=== PATIENT | female | born 1990 | race Caucasian/White ===

== ENCOUNTER → 2016-06-29 | Outpatient (CLI) | payer OTHER ==
[2016-06-29 15:48] LABS: ALT/SGPT 14 U/L (12-78); BLOOD UREA NITROGEN 10 mg/dl (7-18); BUN/CREATININE RATIO 12.7 (10-20); CALCIUM 8.9 mg/dl (8.5-10.1); CARBON DIOXIDE 29 mmol/L (21-32); CHLORIDE 103 mmol/L (98-107); CHOLESTEROL 156 mg/dl (0-200); CREATININE 0.79 mg/dl (0.60-1.20); GLUCOSE 266 mg/dl (70-99); POTASSIUM 4.2 mmol/L (3.5-5.1); SODIUM 139 mmol/L (136-145); TRIGLYCERIDES 66 mg/dl (0-150); VERY LOW DENSITY LIPOPROT CALC 13 mg/dl
[2016-06-29 15:53] LABS: ESTIMATED AVERAGE GLUCOSE 197 mg/dl; HA1C FLAG Normal (Normal)
[2016-06-29 15:58] LABS: ALKALINE PHOSPHATASE 64 U/L (45-117); AST/SGOT 13 U/L (15-37); HDL CHOLESTEROL 79 mg/dl; LDL CHOLESTEROL CALCULATED 64 mg/dl; THYROID STIMULATING HORMONE 0.948 uIu/ml (0.300-4.500)
== END | disposition home or self-care (01) ==
LOC: C.LAB1850 14:30
PROVIDERS: ATTEND Nurse Practitioner Family
DX: E10.9 Type 1 diabetes mellitus without complications (principal)

== ENCOUNTER → 2016-09-29 | Outpatient (CLI) | payer OTHER, BC ==
[2016-09-29 17:52] LABS: ESTIMATED AVERAGE GLUCOSE 183 mg/dl; HA1C FLAG Normal (Normal)
== END | disposition home or self-care (01) ==
LOC: C.LAB1850 16:43
PROVIDERS: ATTEND Nurse Practitioner Family
DX: E10.65 Type 1 diabetes mellitus with hyperglycemia (principal)

== ENCOUNTER → 2017-03-06 | Outpatient (CLI) | payer BC ==
[2017-03-07 05:37] LABS: ESTIMATED AVERAGE GLUCOSE 157 mg/dl; HA1C FLAG Normal (Normal)
== END | disposition home or self-care (01) ==
LOC: C.LAB1850 16:14
PROVIDERS: ATTEND Nurse Practitioner Family
DX: E10.9 Type 1 diabetes mellitus without complications (principal)

== ENCOUNTER → 2017-11-08 | Outpatient (CLI) | payer BC ==
[2017-11-08 18:15] LABS: ALBUMIN 4.1 gm/dl (3.4-5.0); ALKALINE PHOSPHATASE 67 U/L (45-117); ALT/SGPT 16 U/L (12-78); AST/SGOT 13 U/L (15-37); BLOOD UREA NITROGEN 13 mg/dl (7-18); CALCIUM 8.9 mg/dl (8.5-10.1); CARBON DIOXIDE 30 mmol/L (21-32); CHOLESTEROL 153 mg/dl (0-200); CREATININE 0.79 mg/dl (0.60-1.20); GLUCOSE 54 mg/dl (70-99); LDL CHOLESTEROL CALCULATED 77 mg/dl; POTASSIUM 3.5 mmol/L (3.5-5.1); SODIUM 141 mmol/L (136-145); TOTAL PROTEIN 7.9 gm/dl (6.4-8.2)
== END | disposition home or self-care (01) ==
LOC: C.LAB1850 17:06
PROVIDERS: ATTEND Physician Assistant
DX: E10.9 Type 1 diabetes mellitus without complications (principal)

== ENCOUNTER 2017-12-11 14:42 | Emergency (ER) | payer BC ==
[~2017-12-11] VITALS: Ht 175.3 cm; Wt 94.0 kg
[2017-12-11 14:45] VITALS: Ht 175.3 cm; Wt 94.0 kg
[2017-12-11] MEDS ORDERED: SODIUM CHLORIDE 0.9% 1000ML 2,000 ML IV STA (14:54)
[2017-12-11] MEDS ORDERED: ONDANSETRON INJ 2 MG/ML 2 ML VIAL IV STA (14:54)
--- NOTE | 2017-12-11 15:27 | DIAGNOSTIC IMAGING REPORT ---
ABDOMEN 2VIEW W/PA CHEST RTN CLINICAL HISTORY: 26 years-old Female presenting with vomiting. TECHNIQUE: PA view of the chest and supine and upright views of the abdomen were obtained. COMPARISON: None. FINDINGS: Cardiomediastinal silhouette normal. Lungs and pleural spaces clear. Nonobstructive bowel gas pattern. No gross pneumoperitoneum. Allowing for bowel gas and stool, no calcifications to suggest nephrolithiasis. Osseous structures normal. IMPRESSION: 1. No acute cardiopulmonary disease. 2. No radiographic evidence of acute intra-abdominal pathology. Electronically signed by: Hero Rosado M.D. 12/11/2017 3:26 PM Dictated Date/Time: 12/11/2017 3:25 PM
[2017-12-11 15:49] LABS: CREATININE 0.83 mg/dl (0.60-1.20); POTASSIUM 3.7 mmol/L (3.5-5.1)
--- NOTE | 2017-12-11 16:04 | EMERGENCY ROOM VISIT NOTE ---
History Report prepared by Teeibthanh: Yasmine Walters Under the Supervision of: Dr. Allan Mcfarland M.D. First contact with patient: 14:48 Chief Complaint: DEHYDRATION Stated Complaint: KETONES,VOMITING,DEHYDRATED,FEVER History of Present Illness The patient is a 26 year old female who presents to the Emergency Room with complaints of an episode of dehydration that onset at 0400. She notes that she has ketones from Type 1 diabetes. She states that she has an insulin pump. She notes that when she last checked her sugar is was 148. The patient complains of a fever of 101 and sinus congestion. She denies cough, abdominal pain, chest pain, hematuria, blood and black spots in her vomit, and shortness of breath. She notes that she is on control and denies any chances of being . The patient denies recent alcohol abuse. She states that her cousins have recently had GI illnesses as well. Source of History: patient Onset: 0400 today Position: abdomen Quality: other (dehydration) Timing: other (episode) Associated Symptoms: + fevers (101), No cough, No chest pain, No SOB (The patient denies blood and black spots in her vomit. ), No abdominal pain, No urinary symptoms (hematuria) Note: The patient complains of sinus congestion. The patient denies blood and black spots in her vomit. Review of Systems See HPI for pertinent positives and negatives. A total of ten systems were reviewed and were otherwise negative. Family History Patient reports no known family medical history. Social History Smoking Status: Never Smoker Current/Historical Medications Scheduled Control Pills ( Control Pills), 1 TAB PO DAILY Insulin Aspart (novoLOG INSULIN PUMP ), 1 EA N/A UD Ondasetron Odt (Zofran Odt), 4 MG SL TID Allergies Coded Allergies: No Known Allergies (Unverified , 12/11/17) Physical Exam Vital Signs Date Time Temp Pulse Resp B/P (MAP) Pulse Ox O2 Delivery O2 Flow Rate FiO2 12/11/17 21:36 106 18 99 Room Air 12/11/17 20:50 37.5 121 18 99 Room Air 12/11/17 20:31 122 18 110/60 98 Room Air 12/11/17 18:29 38.4 128 20 117/68 99 Room Air 12/11/17 17:45 37.7 113 18 120/64 99 Room Air 8/20/18 15:32 109 18 130/74 99 Room Air 12/11/17 15:14 117 12/11/17 14:45 37.5 142 20 121/85 100 Room Air Physical Exam Physical Exam GENERAL: She is oriented to person, place, and time. She appears well- developed and well-nourished. She does not appear distressed. HENT: Exam performed. Head: Normocephalic and atraumatic. Right Ear: External ear normal. No mastoid tenderness. Left Ear: External ear normal. No mastoid tenderness. Mouth/Throat: The oropharynx is clear and moist. No trismus in the jaw. No dental abscesses or uvula swelling. No oropharyngeal exudate or tonsillar abscesses. EYES: Conjunctivae and EOM are normal. Pupils are equal, round, and reactive to light. Right eye exhibits no discharge. Left eye exhibits no discharge. No scleral icterus. NECK: Normal range of motion. Neck supple. No JVD present. No spinous process tenderness present. No carotid bruit present. No rigidity. No tracheal deviation and normal range of motion present. No Brudzinski's sign and no Kernig 's sign noted. CV: Tachycardic. regular rhythm, normal heart sounds and intact distal pulses. There is no peripheral edema. Palpable radial pulses bue. PULM/CHEST: Effort normal and breath sounds normal. No respiratory distress. No stridor. She has no wheezes. She has no rales. Chest Wall: She exhibits no tenderness. ABD: The abdomen is soft. Bowel sounds are normal. She has no distension. No mass is present. There is no tenderness. There is no rebound, no guarding, no Chauhan's sign and no tenderness at McBurney's point. Rovsig negative MUSC/SKEL: Normal range of motion. There is no peripheral edema, tenderness or deformity. LYMPH: No cervical adenopathy. NEURO: She is alert and oriented to person, place, and time. She has normal strength. No cranial nerve deficit or sensory deficit. Coordination and gait normal. GCS eye subscore is 4. GCS verbal subscore is 5. GCS motor subscore is 6. Cerebellar tests wnl. SKIN: Skin is warm and dry. She is not diaphoretic. PSYCH: She has a normal mood and affect. Behavior is normal. Judgment and thought content normal. Medical Decision & Procedures ER Provider Diagnostic Interpretation: Radiology results as stated below per my review and radiologist interpretation: ABDOMEN 2VIEW W/PA CHEST RTN CLINICAL HISTORY: 26 years-old Female presenting with vomiting. TECHNIQUE: PA view of the chest and supine and upright views of the abdomen were obtained. COMPARISON: None. FINDINGS: Cardiomediastinal silhouette normal. Lungs and pleural spaces clear. Nonobstructive bowel gas pattern. No gross pneumoperitoneum. Allowing for bowel gas and stool, no calcifications to suggest nephrolithiasis. Osseous structures normal. IMPRESSION: 1. No acute cardiopulmonary disease. 2. No radiographic evidence of acute intra-abdominal pathology. Electronically signed by: Hero Rosado M.D. 12/11/2017 3:26 PM Dictated Date/Time: 12/11/2017 3:25 PM Laboratory Results 12/11/17 15:00 Red Blood Count 5.28, Mean Corpuscular Volume 84.1, Mean Corpuscular Hemoglobin 29.7, Mean Corpuscular Hemoglobin Concent 35.4, Mean Platelet Volume 11.2, Neutrophils (%) (Auto) 91.1, Lymphocytes (%) (Auto) 5.3, Monocytes (%) (Auto) 3.2, Eosinophils (%) (Auto) 0.1, Basophils (%) (Auto) 0.0, Neutrophils # (Auto) 6.87, Lymphocytes # (Auto) 0.40, Monocytes # (Auto) 0.24, Eosinophils # (Auto) 0.01, Basophils # (Auto) 0.00 12/11/17 20:51 Test 12/11/17 15:00 12/11/17 15:40 12/11/17 18:56 12/11/17 20:51 White Blood Count 7.54 K/uL (4.8-10.8) Red Blood Count 5.28 M/uL (4.2-5.4) Hemoglobin 15.7 g/dL (12.0-16.0) Hematocrit 44.4 % (37-47) Mean Corpuscular Volume 84.1 fL (80-100) Mean Corpuscular Hemoglobin 29.7 pg (25-34) Mean Corpuscular Hemoglobin Concent 35.4 g/dl (32-36) Platelet Count 191 K/uL (130-400) Mean Platelet Volume 11.2 fL (7.4-10.4) Neutrophils (%) (Auto) 91.1 % Lymphocytes (%) (Auto) 5.3 % Monocytes (%) (Auto) 3.2 % Eosinophils (%) (Auto) 0.1 % Basophils (%) (Auto) 0.0 % Neutrophils # (Auto) 6.87 K/uL (1.4-6.5) Lymphocytes # (Auto) 0.40 K/uL (1.2-3.4) Monocytes # (Auto) 0.24 K/uL (0.11-0.59) Eosinophils # (Auto) 0.01 K/uL (0-0.5) Basophils # (Auto) 0.00 K/uL (0-0.2) RDW Standard Deviation 38.4 fL (36.4-46.3) RDW Coefficient of Variation 12.6 % (11.5-14.5) Immature Granulocyte % (Auto) 0.3 % Immature Granulocyte # (Auto) 0.02 K/uL (0.00-0.02) Total Bilirubin 1.0 mg/dl (0.2-1) Direct Bilirubin 0.3 mg/dl (0-0.2) Aspartate Amino Transf (AST/SGOT) 16 U/L (15-37) Alanine Aminotransferase (ALT/SGPT) 13 U/L (12-78) Alkaline Phosphatase 70 U/L (45-117) Total Protein 7.7 gm/dl (6.4-8.2) Albumin 3.9 gm/dl (3.4-5.0) Lipase 89 U/L (73-393) Urine Color YELLOW Urine Appearance CLEAR (CLEAR) Urine pH 5.0 (4.5-7.5) Urine Specific [place] 1.012 (1.000-1.030) Urine Protein NEG (NEG) Urine Glucose (UA) NEG (NEG) Urine Ketones 3+ (NEG) Urine Occult Blood NEG (NEG) Urine Nitrite NEG (NEG) Urine Bilirubin NEG (NEG) Urine Urobilinogen NEG (NEG) Urine Leukocyte Esterase NEG (NEG) Urine Test NEG (NEG) Bedside Lactic Acid Venous 1.86 mmol/L (0.90-1.70) Anion Gap 9.0 mmol/L (3-11) Est Creatinine Clear Calc Drug Dose 135.2 ml/min Estimated GFR () 123.5 Estimated GFR (Non- 106.6 BUN/Creatinine Ratio 11.5 (10-20) Calcium Level 7.4 mg/dl (8.5-10.1) Test 12/11/17 21:22 Bedside Glucose 175 mg/dl (70-90) Laboratory results reviewed by me Medications Administered Medications (Trade) Dose Ordered Sig/Lloyd Route Start Time Stop Time Status Last Admin Dose Admin Sodium Chloride 2,000 ml @ 999 mls/hr Q2H1M STAT IV 12/11/17 14:54 12/11/17 16:54 DC 12/11/17 15:09 999 MLS/HR Ondansetron HCl (Zofran Inj) 4 mg NOW STAT IV 12/11/17 14:54 12/11/17 14:57 DC 12/11/17 15:09 4 MG Sodium Chloride 1,000 ml @ 999 mls/hr Q1H1M STAT IV 12/11/17 18:14 12/11/17 19:14 DC 12/11/17 18:30 999 MLS/HR Lorazepam (Ativan Inj) 1 mg NOW STAT IV 12/11/17 18:14 12/11/17 18:16 DC 12/11/17 18:31 1 MG Acetaminophen (Tylenol Tab) 1,000 mg NOW STAT PO 12/11/17 18:35 12/11/17 18:36 DC 12/11/17 18:40 1,000 MG ECG Per My Interpretation Indication: vomiting Rate (beats per minute): 124 Rhythm: sinus rhythm Findings: other (IA, QR, and QTC within normal limits. No ST segment elevation or depression/) ED Course 1453: The patient was evaluated in room C8. A complete history and physical exam was performed. 1454: Zofran Inj 4 mg IV, Sodium Chloride 2,000 ml @ 999 mls/hr IV. 1530: Heart rate is improved. Still mildly tachycardic. Repeat physical exam was within normal limits. Repeat abdominal exam shows no pain to palpitation. No meningeal signs. Images were within normal limits. Labs show a normal glucose with an ion gap of 13. Urine shows no signs of infection. 3 ketones. Will continue to hydrate and will reassess. If she continues doing well will plan on discharging her. 1545: The patient reports feels better. No meningeal signs. 1813: The patient states that she feels fine. At time of discharge she was found to be tachycardic with a heart rate in the 120s. She states that she has anxiety. WIll repeat IV fluid bolus and will give 1 of Ativan and then reassess. 1814: Ordered Ativan Inj 1 mg IV, Sodium Chloride 1,000 ml @ 999 mls/hr IV. 183: Repeated vitals and she has a temperate of 38.4. 1834: Ordered Tylenol Tab 1,000 mg PO. 1838: Repeated physical exam and there is till no palpitation to the abdomen. She still feels fine. Not sure if she contracted virus from cousins. 2019: The patient continues to be tachycardic. Bedside US showed no cardial pericardial tamponade. On repeat exam, she had pain on palpitation on right lower and left lower quadrant. Will obtain a CT to rule out appendicitis. Also will repeat renal profile. 2202: Vital signs stable. Patient's fever has improved. Heart rate has also improved. Repeat physical exam shows no meningeal signs and no pain on palpation of the abdomen. Repeat renal profile within normal limits. CBC and lactic acid within normal limits. No evidence of anion gap acidosis or DKA. CT of the abdomen showed normal appendix. CT of the chest given the persistent tachycardia was negative for PE. Patient will be discharged with prescription Zofran and follow-up PCP DISCHARGE - Plan of care discussed with patient and questions answered. The patient was given both verbal and printed discharge instructions. The patient verbalized understanding and ability to comply. The patient is to seek outpatient follow up as noted in the discharge instructions. The patient verbalized understanding and ability to comply. The patient is discharged in stable condition. The patient was instructed to return for worsening symptoms. Medical Decision 1453: The patient was evaluated in room C8. A complete history and physical exam was performed. 1454: Zofran Inj 4 mg IV, Sodium Chloride 2,000 ml @ 999 mls/hr IV. 1530: Heart rate is improved. Still mildly tachycardic. Repeat physical exam was within normal limits. Repeat abdominal exam shows no pain to palpitation. No meningeal signs. Images were within normal limits. Labs show a normal glucose with an ion gap of 13. Urine shows no signs of infection. 3 ketones. Will continue to hydrate and will reassess. If she continues doing well will plan on discharging her. 1545: The patient reports feels better. No meningeal signs. 181: The patient states that she feels fine. At time of discharge she was found to be tachycardic with a heart rate in the 120s. She states that she has anxiety. WIll repeat IV fluid bolus and will give 1 of Ativan and then reassess. 181: Ordered Ativan Inj 1 mg IV, Sodium Chloride 1,000 ml @ 999 mls/hr IV. 183: Repeated vitals and she has a temperate of 38.4. 1834: Ordered Tylenol Tab 1,000 mg PO. 1838: Repeated physical exam and there is till no palpitation to the abdomen. She still feels fine. Not sure if she contracted virus from cousins. 2020: The patient continues to be tachycardic. Bedside US showed no cardial pericardial tamponade. On repeat exam, she had pain on palpitation on right lower and left lower quadrant. Will obtain a CT to rule out appendicitis. Also will repeat renal profile. 2202: Vital signs stable. Patient's fever has improved. Heart rate has also improved. Repeat physical exam shows no meningeal signs and no pain on palpation of the abdomen. Repeat renal profile within normal limits. CBC and lactic acid within normal limits. No evidence of anion gap acidosis or DKA. CT of the abdomen showed normal appendix. CT of the chest given the persistent tachycardia was negative for PE. Patient will be discharged with prescription Zofran and follow-up PCP DISCHARGE - Plan of care discussed with patient and questions answered. The patient was given both verbal and printed discharge instructions. The patient verbalized understanding and ability to comply. The patient is to seek outpatient follow up as noted in the discharge instructions. The patient verbalized understanding and ability to comply. The patient is discharged in stable condition. The patient was instructed to return for worsening symptoms. Medication Reconcilliation Current Medication List: was personally reviewed by me Impression Primary Impression: Nausea & vomiting Scribe Attestation The scribe's documentation has been prepared under my direction and personally reviewed by me in its entirety. I confirm that the note above accurately reflects all work, treatment, procedures, and medical decision making performed by me. The chart was completed utilizing [employer] voice recognition software. Grammatical errors, random word insertions, pronoun errors, and incomplete sentences are an occasional consequence of this system due to software limitations, ambient noise, and hardware issues. Any formal questions or concerns about the content, text, or information contained within the body of this dictation should be directly addressed to the physician for clarification. Departure Information Prescriptions Ondasetron Odt (ZOFRAN ODT) 4 Mg Tab 4 MG SL TID for Nausea, #30 TAB Prov: Allan Mcfarland M.D. 12/11/17 Referrals No Doctor, Assigned (PCP) Patient Instructions My [facility] Problem Qualifiers Primary Impression: Nausea & vomiting Vomiting type: unspecified Vomiting Intractability: non-intractable Qualified Codes: R11.2 - Nausea with vomiting, unspecified
[2017-12-11] MEDS ORDERED: BCPILLS PO (16:42)
[2017-12-11] MEDS ORDERED: INSPMPNVLG (16:42)
[2017-12-11] MEDS ORDERED: ONDA4TAB10 SL (17:55)
[2017-12-11] MEDS ORDERED: LORAZEPAM 2 MG/ML 1 ML VIAL IV STA (18:14)
[2017-12-11] MEDS ORDERED: SODIUM CHLORIDE 0.9% 1000ML 1,000 ML IV STA (18:14)
[2017-12-11] MEDS ORDERED: ACETAMINOPHEN 500 MG TAB PO STA (18:35)
[2017-12-11 19:39] LABS: EOS % 0.1 %; EOS ABS # 0.01 K/uL (0-0.5); HEMATOCRIT 44.4 % (37-47); HEMOGLOBIN 15.7 g/dL (12.0-16.0); IG# 0.02 K/uL (0.00-0.02); LYMPH % 5.3 %; MEAN CELL VOLUME 84.1 fL (80-100); MEAN CORPUSCULAR HEMOGLOBIN 29.7 pg (25-34); MEAN CORPUSCULAR HGB CONC 35.4 g/dl (32-36); MEAN PLATELET VOLUME 11.2 fL (7.4-10.4); MONO % 3.2 %; MONO ABS # 0.24 K/uL (0.11-0.59); NEUT % 91.1 %; NEUT ABS # 6.87 K/uL (1.4-6.5); PLATELET COUNT 191 K/uL (130-400); RED CELL DISTRIBUTION WIDTH CV 12.6 % (11.5-14.5); RED CELL DISTRIBUTION WIDTH SD 38.4 fL (36.4-46.3); WHITE BLOOD COUNT 7.54 K/uL (4.8-10.8)
[2017-12-11 20:18] LABS: ALBUMIN 3.9 gm/dl (3.4-5.0); TOTAL PROTEIN 7.7 gm/dl (6.4-8.2)
[2017-12-11] MEDS ORDERED: OPTIRAY 320 IV PRN (20:45)
[2017-12-11 20:50] VITALS: TEMP 37.5
--- NOTE | 2017-12-11 21:44 | DIAGNOSTIC IMAGING REPORT ---
CT ANGIOGRAPHY OF THE CHEST, PULMONARY EMBOLUS PROTOCOL CLINICAL HISTORY: Fever. COMPARISON STUDY: Chest radiograph performed earlier today. TECHNIQUE: Following IV administration of 116 mL of Optiray-320, helical axial images of the chest were obtained utilizing the pulmonary embolus protocol. Maximal intensity projections and sagittal and coronal reformats were viewed on an independent 3D workstation. IV contrast was administered without complication. A dose lowering technique was utilized adhering to the principles of ALARA. CT DOSE: 954.77 mGy.cm FINDINGS: No pulmonary emboli are identified. There is no evidence for thoracic aortic dissection. The size of the heart is normal. There is no pericardial effusion. No enlarged axillary, mediastinal or hilar lymph nodes are present. The central airways are patent. No pneumothorax or pleural effusion is noted. There is no consolidation to suggest pneumonia. Bony thorax is unremarkable. The abdomen and pelvis will be reported separately. IMPRESSION: 1. No pulmonary emboli identified. 2. No acute intrathoracic findings. Electronically signed by: Bay Diaz M.D. 12/11/2017 9:43 PM Dictated Date/Time: 12/11/2017 9:37 PM
[2017-12-11 21:46] LABS: CALCIUM 7.4 mg/dl (8.5-10.1); CREATININE 0.77 mg/dl (0.60-1.20); POTASSIUM 3.4 mmol/L (3.5-5.1)
--- NOTE | 2017-12-11 21:57 | DIAGNOSTIC IMAGING REPORT ---
CT OF THE ABDOMEN AND PELVIS WITH CONTRAST CLINICAL HISTORY: Vomiting. Fever. COMPARISON STUDY: Abdominal series performed earlier today. TECHNIQUE: Following IV administration of 116 mL of Optiray-320, axial images of the abdomen and pelvis were obtained from the lung bases to the proximal femurs. Images were reviewed in the axial, sagittal, and coronal planes. IV contrast was administered without complication. A dose lowering technique was utilized adhering to the principles of ALARA. FINDINGS: The chest will be reported separately. The liver, spleen, adrenal glands, kidneys and pancreas are unremarkable with the exception of pancreatic glandular atrophy. There is no biliary or pancreatic ductal dilatation. No pneumatosis, free air or portal venous gas is present. The appendix is normal. Caliber and wall thickness of small and large bowel are normal. There is no lymphadenopathy, abscess or free air. No suspicious osseous lesions are noted. There is no hydronephrosis. Major vasculature is patent. IMPRESSION: 1. Normal appendix. No bowel obstruction. 2. Pancreatic glandular atrophy for age. This can be seen in type 1 diabetes. 3. Fluid filled small bowel which may be within normal limits although an enteritis could have this imaging appearance. Electronically signed by: Bay Diaz M.D. 12/11/2017 9:56 PM Dictated Date/Time: 12/11/2017 9:49 PM
[2017-12-11 22:09] VITALS: BP 110/60; PULSE 106; O2SAT 99
--- NOTE | 2017-12-13 15:36 | Pharmacy Progress Note ---
ED Pharmacist Culture FollowUp Date of Service: Dec 13, 2017. BLCX results: 1 of 4 bottles collected on 12/11 is growing GPC in clusters. This was in the anaerobic bottle. Pt was seen in ER on 12/11 for NV, dehydration and fever. She had recently been exposed to cousins who also had GI symptoms. She is a type 1 diabetic. No leukocytosis present on labs. Tmax in ED 38.4. She was not hyperglycemic and her AG was not elevated. She did however have 3+ ketones in her urine. She received IV hydration in ER w/ improvement in her symptoms. She was discharged w/ Rx for Zofran and was to f/u with PCP. Reviewed cx result w/ Dr Chen. Plan was to contact pt and have her return if she still had symptoms of infection. I spoke to the patient over the phone. She states she no longer has a fever, no nausea or vomiting. She states she was feeling well and her only concern was that she feels that her HR was still somewhat elevated. I explained to the patient that 1 of her blood cx's is growing an organism that is likely a contaminant from her skin eulogio and that we would follow this cx and notify her if the organism is not likely a contaminant. She was to f/u with us if she develops fever, chills or s/s infection.
== END 2017-12-11 22:05 | disposition home or self-care (01) ==
LOC: C.EDB 14:43 → C.EDC 22:05
DX: R11.2 Nausea with vomiting, unspecified (principal); E10.9 Type 1 diabetes mellitus without complications; R50.9 Fever, unspecified; Z79.3 Long term (current) use of hormonal contraceptives

== ENCOUNTER 2021-10-30 17:24 | Inpatient (IN) ==
[2021-10-30] MEDS ORDERED: ONDANSETRON INJ 2 MG/ML 2 ML VIAL IV STA (17:51)
[2021-10-30] MEDS ORDERED: MoRPHine SULFATE 4 MG/ML 1 ML CARP\\VIAL IV STA (17:51)
--- NOTE | 2021-10-30 17:54 | Emergency Department Note ---
History of Present Illness General Chief complaint: Fall Stated complaint: FALL,LOW BACK PAIN Time Seen by Provider: 10/30/21 17:45 Source: patient History of Present Illness Provider complaint: Low back pain Onset (ago): hour(s) Location: back Radiation: non-radiation Severity: severe Pain Consistency: + constant Maximum Pain Intensity: 10 Quality: + sharp Exacerbated By: + movement Associated symptoms: no chest pain, no cough, no fever/chills, no headaches, no nausea/vomiting, no shortness of breath, no syncope or no weakness This is a 30-year-old female who presents with low back pain after falling while rockclimbing in an indoor gym. The patient was bouldering and fell approximately 6 feet onto a padded floor. She first landed on her feet and then hit her buttocks. She did not hit her head or injure her neck. She complains of severe 10 out of 10 pain to the lower back. This started at 1:30 PM today at the time of the fall. The pain does not radiate. It is sharp. Is worse with movement. She has some mild lower abdominal cramping with it. She denies any chance of and declines any testing for . She initially went home but states that the pain is too much to bear at this point. She did take some Tylenol earlier without significant relief. She states the pain does not radiate down into her legs. She denies any numbness or weakness to her legs. She denies any fever, cough or cold symptoms, headache, chest pain, shortness of breath, vomiting, diarrhea or urinary symptoms. Home Medications Medication Instructions Recorded Confirmed Type drospirenone 3 mg-ethinyl 1 tab PO DAILY 02/04/19 07/19/21 History estradiol 0.02 mg tablet (Loryna (28)) acetone (urine) test (Ketone Urine #25 ea 02/11/19 07/19/21 History Test) blood-glucose sensor (Dexcom G6 07/19/21 07/19/21 History Sensor) glucagon HCl 1 mg solution for 1 mg SUBCUT Q20M PRN #1 ea 07/19/21 07/19/21 Rx injection (Glucagon (HCl) Emergency Kit) insulin glargine 100 unit/mL 25 unit SQ .COMPLEX #10 ml 07/19/21 07/19/21 Rx subcutaneous solution (Lantus U-100 Insulin) insulin syringe-needle U-100 1 mL #100 ea 07/19/21 07/19/21 Rx 29 gauge x 1/2" (BD Insulin Syringe Safety-Gin) sertraline 50 mg tablet 50 mg PO DAILY 07/19/21 07/19/21 History Humalog U-100 Insulin 100 unit/mL 75 unit SQ .COMPLEX 90 Days #7 09/17/21 Rx subcutaneous solution (insulin vial NS lispro) Allergies Allergy/AdvReac Type Severity Reaction Status Date / Time No Known Allergies Allergy Unverified 07/19/21 09:28 Past Med/Surg History Medical History Type 1 diabetes mellitus Surgical History Hx of colonoscopy [facility] 05/06/11. Dr. Kvng Simons Hx change in bowel habits, fair prep. Small internal hemorrhoids, no evidence IBS. Hx of tonsillectomy Family History Grandfather (Paternal) Diabetes Aunt Diabetes Breast cancer Social History Smoking Status: Never smoker Hx Alcohol Use: Yes Preferred Language: Sami marital status: Feels Safe at Home: Yes Review of Systems See HPI for pertinent positives & negatives. and A total of 10 systems reviewed and were otherwise negative Physical Exam Vital Signs Vital Signs - 24 hr 10/30/21 17:36 10/30/21 19:49 Temperature 36.4 C L Temperature Source Temporal Artery Scan Pulse Rate 113 H Pulse Rate [Right Finger] 104 H Respiratory Rate 22 20 Respiratory Effort / Characteristics Non-Labored Non-Labored Respiratory Depth Normal Normal Blood Pressure 111/72 Blood Pressure [Right Arm] 144/93 H Blood Pressure Mean 85 Blood Pressure Mean [Right Arm] 110 Blood Pressure Position Sitting Pulse Oximetry 100 100 Oxygen Delivery Method Room Air Room Air Sepsis Recent Fever Within 48 Hours No Sepsis New/Unexplained Change in Mental Status No Sepsis Action Taken by Nursing No Action Required Constitutional: Vital signs reviewed. Eyes: Pupils are equal round reactive to light. Conjunctiva are noninjected. ENT: Pharynx is clear without erythema or exudate. Mucous membranes are moist. Neck supple without meningeal signs. No midline tenderness to cervical spine. Respiratory: Clear to auscultation bilaterally. Breath sounds are equal bilaterally. Cardiovascular: Regular rate and rhythm. No rubs or gallops. GI: Soft, nondistended and nontender. Bowel sounds are present. Musculoskeletal: No peripheral edema. No lower extremity tenderness. Integumentary: No cyanosis. or jaundice. Neurological: The patient is awake and alert. No focal deficits. Motor and sensation are intact in the lower extremities bilaterally, although difficult to assess proximal limb strength due to pain. Psychiatric: Anxious. Course Administered Medications Discontinued Medications Fentanyl Citrate (Fentanyl Citrate 100 Mcg/2 Ml Vial) 50 mcg IV NOW STA Stop: 10/30/21 19:52 Last Admin: 10/30/21 20:06 Dose: 50 mcg Documented by: [id number] Ioversol (Optiray 320 100ml) 95 ml IV ONCE ONE Stop: 10/30/21 20:25 Last Admin: 10/30/21 20:24 Dose: 95 ml Documented by: [id number] Morphine Sulfate (Morphine Sulfate 4 Mg/Ml 1 Ml Carp\\Vial) 4 mg IV NOW STA Stop: 10/30/21 17:52 Last Admin: 10/30/21 18:10 Dose: 4 mg Documented by: [id number] Ondansetron HCl (Ondansetron Inj 2 Mg/Ml 2 Ml Vial) 4 mg IV NOW STA Stop: 10/30/21 17:52 Last Admin: 10/30/21 18:10 Dose: 4 mg Documented by: [id number] Medical Decision Making Differential Diagnosis Compression fracture, pelvic fracture, intervertebral disc disease, strain, contusion Medical Records Attestation: I reviewed the patient's medical records. I did perform a limited focused review of portions of the patient's old chart on the electronic medical record. The patient was seen for right shoulder bursitis by orthopedics, Dr. Hernández, last month. Home Medications Current Medication List: was personally reviewed by me Laboratory Data Attestation: I reviewed the patient's lab results. Result diagrams: 10/30/21 18:00 10/30/21 18:00 Lab Results 10/30/21 10/30/21 10/30/21 Range/Units 18:00 18:00 21:21 WBC 7.92 (4.8-10.8) K/ul RBC 4.75 (3.93-5.22) M/uL Hgb 13.8 (12.0-16.0) g/dl Hct 40.3 (34.1-44.9) % MCV 84.8 (80.0-100.0) fL MCH 29.1 (25.0-34.0) pg MCHC 34.2 (32.0-36.0) g/dL RDW Std Deviation 38.1 (36.4-46.3) fL RDW Coeff of Briana 12.3 (11.5-14.5) % Plt Count 206 (130-400) K/uL MPV 10.2 (9.4-12.3) fL Immature Gran % (Auto) 0.5 % Neut % (Auto) 73.6 % Lymph % (Auto) 19.2 % [place] % (Auto) 6.2 % Eos % (Auto) 0.1 % Baso % (Auto) 0.4 % Neut # (Auto) 5.83 (1.4-6.5) K/uL Lymph # (Auto) 1.52 (1.2-3.4) K/uL [place] # (Auto) 0.49 (0.24-0.82) K/uL Eos # (Auto) 0.01 (0-0.50) K/uL Baso # (Auto) 0.03 (0-0.2) K/uL Immature Gran # (Auto) 0.04 H (0.00-0.02) K/uL Sodium 137 (136-145) mmol/L Potassium TNP Chloride 105 (98-107) mmol/L Carbon Dioxide 24 (21-32) mmol/L Anion Gap 8 (3-11) BUN 12 (6-23) mg/dl Creatinine 0.69 (0.6-1.2) mg/dl Est Cr Clr Drug Dosing Not Reportable Est GFR ( Amer) 135.4 ml/min Est GFR (Non-Af Amer) 116.8 ml/min BUN/Creatinine Ratio 17.4 (10-20) Glucose 111 H (70-99(Fasting)) mg/dl Calcium 8.9 (8.5-10.1) mg/dl Total Bilirubin 0.4 (0.2-1.0) mg/dl AST TNP ALT 19 (7-52) U/L Alkaline Phosphatase 49 (34-104) U/L Total Protein 6.8 (6.0-8.3) gm/dl Albumin 4.1 (3.4-5.0) gm/dl Globulin 2.7 (2.5-4.0) gm/dl Albumin/Globulin Ratio 1.5 (0.9-2) SARS-CoV-2, RNA, NAAT NEGATIVE (NEGATIVE) Imaging Data Radiologist's Impression: Lumbar Spine X-Ray 10/30/21 17:51 XR lumbar spine 2-3V CLINICAL HISTORY: Status post fall with low back pain. COMPARISON STUDY: CT of the abdomen and pelvis from 03/22/2021 TECHNIQUE: 3 Views of the lumbar spine FINDINGS: Bones: There is an anterior wedge deformity present involving the superior endplate of L1. This was not present on a CT of the abdomen and pelvis 03/22/2021. The heights of the remaining lumbar vertebral bodies are maintained. There are no lytic or blastic lesions present. Disc spaces: The disc space heights are maintained. Facet joints: The facet joints are intact bilaterally. Soft tissues: The paraspinal soft tissues are within normal limits. IMPRESSION: 1. Anterior wedge deformity of the L1 vertebral body which was not present on a previous CT of abdomen and pelvis from 03/22/2021. The presence of an acute or subacute compression fracture cannot be excluded. ACT 112: Negative or not required by law. Electronically signed by: Demetrius Ayoub M.D. 10/30/2021 7:00 PM Thoracic Spine X-Ray 10/30/21 17:51 XR thoracic spine 3V routine CLINICAL HISTORY: Status post fall with back pain. COMPARISON STUDY: No previous studies for comparison. TECHNIQUE: 3 views of the thoracic spine FINDINGS: There is no evidence for fracture or malalignment. The heights of the vertebral bodies are maintained. The disc space heights are maintained. The pedicles and paraspinal soft tissues are normal. IMPRESSION: 1. Negative examination of the thoracic spine. ACT 112: Negative or not required by law. Electronically signed by: Demetrius Ayoub M.D. 10/30/2021 7:01 PM Pelvis X-Ray 10/30/21 17:54 XR pelvis 1-2V routine CLINICAL HISTORY: Status post fall with pain. COMPARISON STUDY: No previous studies for comparison. TECHNIQUE: [A single AP radiograph was obtained. FINDINGS: There is no evidence for an acute fracture. The hip joint spaces are maintained bilaterally and the bones are in anatomic alignment. The SI joints are intact bilaterally. The remaining visualized bones of the pelvis are intact. No focal soft tissue abnormalities identified. IMPRESSION: 1. No acute abnormality. ACT 112: Negative or not required by law. Electronically signed by: Demetrius Ayoub M.D. 10/30/2021 7:01 PM Abdomen/Pelvis CT 10/30/21 19:35 CT abd pelvis IV con only, CT lumbar spine w con CLINICAL HISTORY: fall eval for visceral injury TECHNIQUE: Helical axial images of the abdomen and pelvis were obtained and displayed. Automated dose lowering techniques and/or adjustment according to patient size were utilized for this exam. Dedicated images of the lumbar spine were obtained. This exam was performed with intravenous contrast. CT DOSE: 851.95 mGy.cm COMPARISON: Comparison is made to CT abdomen pelvis 05/22/2020 and lumbar spine radiograph 10/30/2021 FINDINGS: Lower chest: No acute abnormality Liver: Unremarkable. No focal lesions are seen. Gallbladder and biliary tree: No calcified gallstones. Normal caliber wall. No intra- or extrahepatic biliary ductal dilation. Pancreas: Unremarkable, no focal lesions. Spleen: Unremarkable. Adrenals: Unremarkable. Kidneys and ureters: Mild bilateral pelviectasis is seen. Bladder: Unremarkable. Reproductive organs: Unremarkable. Bowel: Unremarkable appearance of the bowel. The appendix is normal. Lymph nodes Retroperitoneal: Unremarkable. Mesenteric: Unremarkable. Pelvic: Unremarkable. Peritoneum: Normal. Vessels: Unremarkable. Abdominal wall: Unremarkable. Bones: There is an acute, mildly comminuted compression fracture involving the L1 vertebral body superior endplate. A bone island is seen in the left iliac wi ng. 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 IMPRESSION: Acute, mildly comminuted compression fracture in the superior endplate of the L1 vertebral body. No additional fracture or visceral injury is seen. ACT 112: Negative or not required by law. Electronically signed by: Jin Adler M.D. 10/30/2021 8:[address] 10/30/21 19:35 CT abd pelvis IV con only, CT lumbar spine w con CLINICAL HISTORY: fall eval for visceral injury TECHNIQUE: Helical axial images of the abdomen and pelvis were obtained and displayed. Automated dose lowering techniques and/or adjustment according to patient size were utilized for this exam. Dedicated images of the lumbar spine were obtained. This exam was performed with intravenous contrast. CT DOSE: 851.95 mGy.cm COMPARISON: Comparison is made to CT abdomen pelvis 05/22/2020 and lumbar spine radiograph 10/30/2021 FINDINGS: Lower chest: No acute abnormality Liver: Unremarkable. No focal lesions are seen. Gallbladder and biliary tree: No calcified gallstones. Normal caliber wall. No intra- or extrahepatic biliary ductal dilation. Pancreas: Unremarkable, no focal lesions. Spleen: Unremarkable. Adrenals: Unremarkable. Kidneys and ureters: Mild bilateral pelviectasis is seen. Bladder: Unremarkable. Reproductive organs: Unremarkable. Bowel: Unremarkable appearance of the bowel. The appendix is normal. Lymph nodes Retroperitoneal: Unremarkable. Mesenteric: Unremarkable. Pelvic: Unremarkable. Peritoneum: Normal. Vessels: Unremarkable. Abdominal wall: Unremarkable. Bones: There is an acute, mildly comminuted compression fracture involving the L1 vertebral body superior endplate. A bone island is seen in the left iliac wing. 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 IMPRESSION: Acute, mildly comminuted compression fracture in the superior endplate of the L1 vertebral body. No additional fracture or visceral injury is seen. ACT 112: Negative or not required by law. Electronically signed by: Jin Adler M.D. 10/30/2021 8:43 PM6 [facility] Narrative I did evaluate the patient as noted above. The patient is presenting with lower back pain after falling 6 feet while rock climbing. IV access was established. I did treat the patient with IV morphine and Zofran. She declined testing for prior to x-rays and stated there was no chance she was . I did order and personally reviewed the images of the patient's spinal and pelvic x-rays as described above. She does have a new compression fracture of L1. She had continued pain and so I did treat her with fentanyl 50 mcg IV. I did order and review the patient's blood work as noted in the electronic medical record. CBC is unremarkable without leukocytosis or anemia. CMP is unremarkable although potassium and AST hemolyzed. I did not suspect any abnormality and so this was not redrawn. I did discuss the test results with the patient. I did have a discussion with the patient and since she had some lower abdominal pain I did recommend CT of the abdomen pelvis as well as lumbar spine. She again declined testing prior to the CT. I did order a CT of the lumbar spine, abdomen and pelvis. I did review the images myself as well as the radiology report as described above. There is no evidence of acute visceral injury in the abdomen pelvis. She does have an acute mildly comminuted compression fracture of the superior endplate of L1. I did discuss the test results with the patient. She is comfortable if she is lying still. She remains neurologically intact. I did discuss the case with Dr. Taylor of orthopedic spine. He did hospitalize the patient for further care and evaluation. I did order a screening COVID test which was negative. Impression & Plan Closed compression fracture of L1 vertebra, Fall from height of greater than 3 feet Discharge Plan Visit Data Chief Complaint: Fall Stated Complaint: FALL,LOW BACK PAIN ED Provider: Hector Botello Discharge Problem: Closed compression fracture of L1 vertebra, Fall from height of greater than 3 feet Patient Disposition: Admitted As Inpatient Discharge Instructions Interventions: ED Discharge Assessment Last Done: 10/30/21 22:11
[2021-10-30 18:12] LABS: Basophils # (auto) 0.03 K/uL (0-0.2); Basophils % (auto) 0.4 %; Eosinophils # (auto) 0.01 K/uL (0-0.50); Eosinophils % (auto) 0.1 %; Hematocrit (blood only) 40.3 % (34.1-44.9); Hemoglobin 13.8 g/dl (12.0-16.0); Immature Granulocytes # (auto) 0.04 K/uL (0.00-0.02); Immature Granulocytes % (auto) 0.5 %; Lymphocytes # (auto) 1.52 K/uL (1.2-3.4); Lymphocytes % (auto) 19.2 %; Mean Corpuscular Hemoglobin 29.1 pg (25.0-34.0); Mean Corpuscular Hgb Conc 34.2 g/dL (32.0-36.0); Mean Corpuscular Volume 84.8 fL (80.0-100.0); Mean Platelet Volume 10.2 fL (9.4-12.3); Monocytes # (auto) 0.49 K/uL (0.24-0.82); Monocytes % (auto) 6.2 %; Neutrophils # (auto) 5.83 K/uL (1.4-6.5); Neutrophils % (auto) 73.6 %; Platelet Count 206 K/uL (130-400); RDW Coefficient of Variation 12.3 % (11.5-14.5); RDW Standard Deviation 38.1 fL (36.4-46.3); Red Blood Count 4.75 M/uL (3.93-5.22); White Blood Count 7.92 K/ul (4.8-10.8)
--- NOTE | 2021-10-30 19:02 | XRay Report ---
XR thoracic spine 3V routine CLINICAL HISTORY: Status post fall with back pain. COMPARISON STUDY: No previous studies for comparison. TECHNIQUE: 3 views of the thoracic spine FINDINGS: There is no evidence for fracture or malalignment. The heights of the vertebral bodies are maintained. The disc space heights are maintained. The pedicles and paraspinal soft tissues are verónica l. IMPRESSION: 1. Negative examination of the thoracic spine. ACT 112: Negative or not required by law. Electronically signed by: Demetrius Ayoub M.D. 10/30/2021 7:01 PM
--- NOTE | 2021-10-30 19:02 | XRay Report ---
XR pelvis 1-2V routine CLINICAL HISTORY: Status post fall with pain. COMPARISON STUDY: No previous studies for comparison. TECHNIQUE: [A single AP radiograph was obtained. FINDINGS: There is no evidence for an acute fracture. The hip joint spaces are maintained bilaterally and the b ones are in anatomic alignment. The SI joints are intact bilaterally. The remaining visualized bones of the pelvis are intact. No focal soft tissue abnormalities identified. IMPRESSION: 1. No acute abnormality. ACT 112: Negative or not required by law. Electronically signed by: Demetrius Ayoub M.D. 10/30/2021 7:01 PM
--- NOTE | 2021-10-30 19:02 | XRay Report ---
XR lumbar spine 2-3V CLINICAL HISTORY: Status post fall with low back pain. COMPARISON STUDY: CT of the abdomen and pelvis from 03/22/2021 TECHNIQUE: 3 Views of the lumbar spine FINDINGS: Bones: There is an anterior wedge deformity present involving the superior endplate of L1. This was n ot present on a CT of the abdomen and pelvis 03/22/2021. The heights of the remaining lumbar vertebra l bodies are maintained. There are no lytic or blastic lesions present. Disc spaces: The disc space heights are maintained. Facet joints: The facet joints are intact bilaterally. Soft tissues: The paraspinal soft tissues are within normal limits. IMPRESSION: 1. Anterior wedge deformity of the L1 vertebral body which was not present on a previous CT of abdome n and pelvis from 03/22/2021. The presence of an acute or subacute compression fracture cannot be exc luded. ACT 112: Negative or not required by law. Electronically signed by: Demetrius Ayoub M.D. 10/30/2021 7:00 PM
[2021-10-30 19:07] LABS: Alanine Aminotransferase 19 U/L (7-52); Albumin Globulin Ratio 1.5 (0.9-2); Albumin Level 4.1 gm/dl (3.4-5.0); Alkaline Phosphatase 49 U/L (34-104); Anion Gap 8 (3-11); BUN Creatinine Ratio 17.4 (10-20); Bilirubin,Total 0.4 mg/dl (0.2-1.0); Blood Urea Nitrogen 12 mg/dl (6-23); Calcium 8.9 mg/dl (8.5-10.1); Carbon Dioxide 24 mmol/L (21-32); Chloride 105 mmol/L (98-107); Est GFR (African American) 135.4 ml/min; Est GFR (Non-African American) 116.8 ml/min; Globulin 2.7 gm/dl (2.5-4.0); Glucose 111 mg/dl (70-99(Fasting)); Sodium 137 mmol/L (136-145); Total Protein 6.8 gm/dl (6.0-8.3)
[2021-10-30] MEDS ORDERED: fentaNYL citrate 100 MCG/2 ML VIAL IV STA (19:51)
[2021-10-30] MEDS ORDERED: OPTIRAY 320 100ml IV ONE (20:24)
--- NOTE | 2021-10-30 20:45 | CT Scan Report ---
CT abd pelvis IV con only, CT lumbar spine w con CLINICAL HISTORY: fall eval for visceral injury TECHNIQUE: Helical axial images of the abdomen and pelvis were obtained and displayed. Automated dose lowering techniques and/or adjustment according to patient size were utilized for this exam. Dedicat ed images of the lumbar spine were obtained. This exam was performed with intravenous contrast. CT DOSE: 851.95 mGy.cm COMPARISON: Comparison is made to CT abdomen pelvis 05/22/2020 and lumbar spine radiograph 10/30/2021 FINDINGS: Lower chest: No acute abnormality Liver: Unremarkable. No focal lesions are seen. Gallbladder and biliary tree: No calcified gallstones. Normal caliber wall. No intra- or extrahepatic biliary ductal dilation. Pancreas: Unremarkable, no focal lesions. Spleen: Unremarkable. Adrenals: Unremarkable. Kidneys and ureters: Mild bilateral pelviectasis is seen. Bladder: Unremarkable. Reproductive organs: Unremarkable. Bowel: Unremarkable appearance of the bowel. The appendix is normal. Lymph nodes Retroperitoneal: Unremarkable. Mesenteric: Unremarkable. Pelvic: Unremarkable. Peritoneum: Normal. Vessels: Unremarkable. Abdominal wall: Unremarkable. Bones: There is an acute, mildly comminuted compression fracture involving the L1 vertebral body supe rior endplate. A bone island is seen in the left iliac wing. Angulation of the coccyx is likely conge nital. IMPRESSION: Acute, mildly comminuted compression fracture in the superior endplate of the L1 vertebral body. No a dditional fracture or visceral injury is seen. ACT 112: Negative or not required by law. Electronically signed by: Jin Adler M.D. 10/30/2021 8:43 PM6
[2021-10-30] MEDS ORDERED: ACETAMINOPHEN 1,000 MG/100 ML VIAL IV PRN (22:44)
[2021-10-30] MEDS ORDERED: diphenhydrAMINE Capsule 25 MG CAP PO PRN (22:44)
[2021-10-30] MEDS ORDERED: NALOXONE HCL 0.4 MG/1 ML VIAL/CARP IV PRN (22:44)
[2021-10-30] MEDS ORDERED: HYDROmorphone INJ 0.5 MG/0.5 ML SYR IV PRN (22:44)
[2021-10-30] MEDS ORDERED: ONDANSETRON INJ 2 MG/ML 2 ML VIAL IV PRN (22:44)
[2021-10-30] MEDS ORDERED: LORazepam 0.5 MG TAB PO PRN (22:44)
[2021-10-30] MEDS ORDERED: ACETAMINOPHEN 500 MG TAB PO PRN (22:44)
[2021-10-30] MEDS ORDERED: oxyCODONE HCL IR 5 MG TAB (IMMEDIATE RELEASE) PO PRN (22:44)
[2021-10-30] MEDS ORDERED: PHARMACY GLYCEMIC MGMT CONSULT PRN (22:44)
[2021-10-30] MEDS ORDERED: PROMETHAZINE HCL 12.5 MG in SODIUM CHLORIDE 0.9% 50 ML IV PRN (22:44)
[2021-10-30] MEDS ORDERED: ONDANSETRON 4 MG OD TAB PO PRN (22:44)
[2021-10-30] MEDS ORDERED: traMADol HCL 50 MG TABLET PO PRN (22:44)
[2021-10-30] MEDS ORDERED: hydrOXYzine HCl 25 MG TAB PO PRN (22:44)
[2021-10-30] MEDS ORDERED: MAGNESIUM HYDROXIDE SUSP 30 ML UDC PO PRN (22:44)
[2021-10-30] MEDS ORDERED: LORazepam 0.5 MG in SYRINGE 0.25 ML IV PRN (22:44)
[2021-10-30] MEDS ORDERED: METOCLOPRAMIDE HCL INJ 5 MG/ML 2 ML VIAL IV PRN (22:44)
[2021-10-30] MEDS ORDERED: Nursing to Pharmacy Communication SCH (23:30)
[2021-10-30] MEDS: SODIUM CHLORIDE 0.9% 1000ML 1,000 ML IV SCH (23:35)
[2021-10-30] MEDS: HYDROmorphone INJ 1 MG/ML SYRINGE IV PRN (23:36)
[2021-10-31] MEDS: SERTRALINE HCL 50 MG TABLET PO SCH ×2 (00:35→20:56)
[2021-10-31] MEDS: PATIENT'S OWN ORAL CONTRACEPTIVE PO SCH ×2 (00:35→20:56)
[2021-10-31] MEDS ORDERED: GLUCAGON FOR INJ 1 MG VIAL SQ PRN (01:15)
[2021-10-31] MEDS ORDERED: Continuous Glucose Monitor SCH (01:15)
[2021-10-31] MEDS ORDERED: CARBOHYDRATES FOR HYPOGLYCEMIA PO PRN (01:15)
[2021-10-31] MEDS ORDERED: GLUCOSE 10 TAB/TUBE PO PRN (01:15)
[2021-10-31] MEDS ORDERED: GLUCOSE 40% GEL 15 GM TUBE PO PRN (01:15)
[2021-10-31] MEDS ORDERED: INSULIN HUMAN LISPRO (humaLOG) 100 UNITS/ML VIAL SC PRN (01:15)
[2021-10-31] MEDS ORDERED: DEXTROSE 50% 50 ML SYRINGE IV PRN (01:15)
[2021-10-31] MEDS: HYDROmorphone INJ 1 MG/ML SYRINGE IV PRN ×5 (07:42→22:18)
--- NOTE | 2021-10-31 07:55 | Pharmacy Report ---
Pharmacy Glycemic Short Note 2 - Date of Service October 31, 2021 - Glycemic Short BSG Results (Last 24 hours): 10/30/21 18:00 Glucose 111 H OUTPATIENT ANTIDIABETIC REGIMEN: * Humalog pump * Basal ~0.9units/hr (0.85units/hr overnight) * CF 30-40 * CR 7.5-9 * TDD ~ 45 units/day * A1c pending ASSESSMENT: * 30 year old female, type 1 DM since 10 years old, managed on insulin pump as above. Admitted for severe back pain d/t fall from 6ft while bouldering at indoor climbing gym, L1 compression fracture. * Bedrest today except to sit up to eat. * BSG 111mg/dl on admission yesterday. * BSGs 168 & 150mg/dl today, CGM within 2 points of our meter, OK to use CGM, reviewed CGM policy with RN. PLAN FOR INPATIENT GLYCEMIC CONTROL: * Continue home insulin pump as above
[2021-10-31] MEDS ORDERED: SERTRALINE HCL 50 MG TABLET PO SCH (09:00)
[2021-10-31] MEDS ORDERED: COUGH DROP (SUGAR FREE) LOZ 24 LOZ/1 BOX BUCCAL ONE (09:58)
--- NOTE | 2021-10-31 10:33 | History & Physical Report ---
Date of Service October 31, 2021 Assessment & Plan (1) Closed compression fracture of L1 vertebra: Plan: Assessment L1 compression fracture. Plan I reviewed with the patient her fracture pattern. While it is a compression fracture does involve a significant portion of the vertebral body and I am very concerned that it would going to further collapse. I will maintain bed rest today she may sit up to eat. We will have her fitted with a TLSO brace hopefully tomorrow. After this is performed we can initiate physical therapy with transfers from bed to chair and ambulation. I would obtain x-ray at that time to ensure there is no loss of height. There is a low chance we may have to surgically stabilize the spine hopefully this will not be necessary. Patient stands and agrees. Admission and Anticipated Discharge Date Admission Date: October 30, 2021 History of Present Illness Chief Complaint: Back pain Primary Care Provider: Mynor Felipe This is a very pleasant 30-year-old female that fell approximately 6 feet while using a climbing wall at a local facility. She believes she landed on her feet and then her bottom. She is complaining mostly of back pain. She denies any numbness or tingling lower extremities. Denies any perineal numbness. Denies any loss of bowel bladder control. Allergies Allergy/AdvReac Type Severity Reaction Status Date / Time No Known Allergies Allergy Unverified 07/19/21 09:28 Home Medications Medication Instructions Recorded Confirmed Type drospirenone 3 mg-ethinyl 1 tab PO DAILY 02/04/19 07/19/21 History estradiol 0.02 mg tablet (Loryna (28)) acetone (urine) test (Ketone Urine #25 ea 02/11/19 07/19/21 History Test) blood-glucose sensor (Dexcom G6 07/19/21 07/19/21 History Sensor) glucagon HCl 1 mg solution for 1 mg SUBCUT Q20M PRN #1 ea 07/19/21 07/19/21 Rx injection (Glucagon (HCl) Emergency Kit) insulin glargine 100 unit/mL 25 unit SQ .COMPLEX #10 ml 07/19/21 07/19/21 Rx subcutaneous solution (Lantus U-100 Insulin) insulin syringe-needle U-100 1 mL #100 ea 07/19/21 07/19/21 Rx 29 gauge x 1/2" (BD Insulin Syringe Safety-Gin) sertraline 50 mg tablet 50 mg PO DAILY 07/19/21 07/19/21 History Humalog U-100 Insulin 100 unit/mL 75 unit SQ .COMPLEX 90 Days #7 09/17/21 Rx subcutaneous solution (insulin vial NS lispro) Past Med/Surg History Medical History Type 1 diabetes mellitus Surgical History Hx of colonoscopy [facility] 05/06/11. Dr. Kvng Simons Hx change in bowel habits, fair prep. Small internal hemorrhoids, no evidence IBS. Hx of tonsillectomy Family History Grandfather (Paternal) Diabetes Aunt Diabetes Breast cancer Social History Smoking Status: Never smoker Hx Alcohol Use: Yes Hx Substance Use: No Preferred Language: Mongolian Communication Ability: Effective [employer] Required: No Beliefs That Will Affect Care: None marital status: Current Living Situation: Spouse Other Information That Helps Us Care for You: No Feels Safe at Home: Yes Safety Concerns: Feels Safe At This Time Assistive Devices: Glasses Physical Exam Physical Exam: Patient is lying supine. She is alert and oriented. She is eccentric to testing lower extremities. Sensory symmetric and intact. Results & Data Results & Data ([facility]) Vital Signs (Past 12 Hours) Vital Signs Temp Pulse Resp BP Pulse Ox 10/31/21 07:16 36.9 C 98 H 12 112/72 98 10/30/21 22:40 37.5 C 88 18 130/85 100 Code Status & VTE Plan VTE Prophylaxis Plan VTE Prophylaxis will be ordered: Yes (1) Closed compression fracture of L1 vertebra Encounter type: initial encounter Qualified Code(s): S32.010A - Wedge compression fracture of first lumbar vertebra, initial encounter for closed fracture
[2021-10-31] MEDS: SODIUM CHLORIDE 0.9% 1000ML 1,000 ML IV SCH (12:06)
[2021-10-31] MEDS: DOCUSATE SODIUM/SENNA 50/8.6MG TAB PO SCH (21:18)
[2021-11-01] MEDS: SODIUM CHLORIDE 0.9% 1000ML 1,000 ML IV SCH ×2 (00:42→13:57)
[2021-11-01] MEDS: HYDROmorphone INJ 1 MG/ML SYRINGE IV PRN ×3 (03:21→11:40)
[2021-11-01 08:30] LABS: Estimated Average Glucose 123 mg/dl; Hemoglobin A1C 5.9 % (4.5-5.6)
[2021-11-01] MEDS: ASPIRIN 325 MG ECTAB PO SCH (09:09)
--- NOTE | 2021-11-01 11:58 | Orthopedic Progress Note ---
Date of Service November 01, 2021 Assessment & Plan (1) Closed compression fracture of L1 vertebra: Plan: At this time we are awaiting the TLSO brace. Once this arrives and is fitted we will initiate physical therapy. Admission and Anticipated Discharge Date Admission Date: October 30, 2021 Subjective Patient pretty sore today but getting relief from her medication. She denies any numbness or tingling in the lower extremities. She is not had a bowel movement yet. Physical Exam Physical Exam: On exam she is lying in bed. She is good strength testing lower extremities. Sensory is intact. Results & Data ([facility]) Vital Signs (Past 12 Hours) Vital Signs Temp Pulse Resp BP Pulse Ox 11/01/21 08:04 37.0 C 110 H 16 117/73 90 (1) Closed compression fracture of L1 vertebra Encounter type: initial encounter Qualified Code(s): S32.010A - Wedge compression fracture of first lumbar vertebra, initial encounter for closed fracture
[2021-11-01] MEDS: KETOROLAC 30 MG/ML VIAL IV PRN ×2 (14:28→21:35)
[2021-11-01] MEDS: PATIENT'S OWN ORAL CONTRACEPTIVE PO SCH (20:31)
[2021-11-01] MEDS: DOCUSATE SODIUM/SENNA 50/8.6MG TAB PO SCH (20:31)
[2021-11-01] MEDS: SERTRALINE HCL 50 MG TABLET PO SCH (20:31)
[2021-11-01] MEDS ORDERED: bisacodyL 10 MG SUPP PR PRN (21:39)
[2021-11-02] MEDS: SODIUM CHLORIDE 0.9% 1000ML 1,000 ML IV SCH ×2 (03:13→18:52)
[2021-11-02] MEDS: ASPIRIN 325 MG ECTAB PO SCH (09:17)
--- NOTE | 2021-11-02 11:55 | Orthopedic Progress Note ---
Date of Service November 02, 2021 Assessment & Plan (1) Closed compression fracture of L1 vertebra: Plan: At this time we will discontinue her IV. We will ask for standing x-rays with her brace on to assess her fracture alignment. As long as her bowels are working appropriately and pain is controlled anticipate discharge home tomorrow. Admission and Anticipated Discharge Date Admission Date: October 30, 2021 Subjective Patient's back pain is improved. She is requiring less pain medication. No bowel movement as of yet. Tolerating the brace well. Physical Exam Physical Exam: On exam the patient is in the chair at the bedside. Is good strength testing. Appears comfortable. Results & Data ([facility]) Vital Signs (Past 12 Hours) Vital Signs Temp Pulse Resp BP Pulse Ox 11/02/21 07:45 37.1 C 98 H 16 126/86 94 (1) Closed compression fracture of L1 vertebra Encounter type: initial encounter Qualified Code(s): S32.010A - Wedge compression fracture of first lumbar vertebra, initial encounter for closed fracture
--- NOTE | 2021-11-02 15:20 | XRay Report ---
LUMBAR SPINE 3 VIEWS CLINICAL HISTORY: Low back pain. FINDINGS: 3 standing views of the lumbar spine are compared to lumbar spine radiographs and CT dated 10/30/2021. The examination is performed through a brace. The skeletal structures are well mineralized . Again seen is a mild superior endplate compression fracture of L1. No retropulsed fragments are tamanna ntified in this is similar in appearance to the 10/30/2021 examinations. Vertebral body height is other henderson maintained throughout the lumbar spine. Alignment is preserved. The transverse and spinous proce sses are intact. A Schmorl's node is seen in the superior endplate of L4. The intervertebral disc spa jeni are well-maintained. The visualized bony pelvis appears intact. There is a nonobstructed abdomina l bowel gas pattern. IMPRESSION: Unchanged appearance/alignment of a L1 compression fracture as compared to 10/30/2021. ACT 112: Negative or not required by law. Electronically signed by: Randall Mcgill M.D. 11/02/2021 3:18 PM
[2021-11-02] MEDS: PATIENT'S OWN ORAL CONTRACEPTIVE PO SCH (20:54)
[2021-11-02] MEDS: DOCUSATE SODIUM/SENNA 50/8.6MG TAB PO SCH (20:55)
[2021-11-02] MEDS: SERTRALINE HCL 50 MG TABLET PO SCH (20:55)
[2021-11-03] MEDS: ASPIRIN 325 MG ECTAB PO SCH (08:33)
--- NOTE | 2021-11-03 10:40 | Discharge Summary ---
Date of Service November 03, 2021 Admission HPI Per Admitting Provider This is a very pleasant 30-year-old female that fell approximately 6 feet while using a climbing wall at a local facility. She believes she landed on her feet and then her bottom. She is complaining mostly of back pain. She denies any numbness or tingling lower extremities. Denies any perineal numbness. Denies any loss of bowel bladder control. Principal Diagnosis L1 compression fracture Discharge Data Allergies Allergy/AdvReac Type Severity Reaction Status Date / Time No Known Allergies Allergy Unverified 07/19/21 09:28 Consultations 10/30/21 21:13 ED Decision to Admit Stat Ordered Studies 10/30/21 19:35 CT abd pelvis IV con only Stat CT lumbar spine w con Stat Hospital Course (1) Closed compression fracture of L1 vertebra: Patient was admitted with acute compression fracture status post fall. She was ultimately fitted with TLSO brace tolerated this overall was up and ambulating bowels working appropriately. Pain well controlled. Final x-rays demonstrated no further collapse of the vertebral body substance he was discharged home. Discharge orders instructions from the chart for further review. Total Time Total Time Spent Total Time Spent (In Minutes): 20 minutes Discharge Plan Discharge Items Patient Disposition: Home - Self-Care Reason For Visit: LUMBAR COMPRESSION FRACTURE Discharge Diagnosis: L1 compression fracture Activity: As commented below Non-emergency contact: Primary Care Provider Call non-emergency contact if: you have any medication questions Follow-up/Referrals: Mynor Felipe [Primary Care Provider] - Diet: Regular Addtl Attending Provider Instructions: Patient is to wear brace at all times when out of bed and ambulating. She may remove the brace when in bed. Brace may be removed for showering only without Pending Studies at Discharge: No Stand-Alone Forms: [facility], Smoking Cessation Medications and DC Order Prescriptions: New aspirin [Ecotrin] 325 mg Tablet,Delayed Release (Dr/Ec) 325 mg PO QAM Qty: 30 0RF tramadol 50 mg tablet 50 mg PO Q6H PRN (Reason: pain, moderate) Qty: 30 0RF oxycodone 5 mg tablet 5 mg PO Q6H PRN (Reason: pain, severe) Qty: 20 0RF Continued insulin lispro [Humalog U-100 Insulin] 100 unit/mL solution 75 unit SQ .COMPLEX 90 Days Qty: 7 3RF Rx Instructions: 75 units subcut infused daily via insulin pump; (DME) Dexcom G6 Sensor Device See Rx Instructions .ROUTE Rx Instructions: As directed sertraline 50 mg tablet 50 mg PO DAILY Lantus U-100 Insulin 100 unit/mL solution 25 unit SQ .COMPLEX Qty: 10 5RF Rx Instructions: 25 units subcut; (DME) insulin syringe-needle U-100 [BD Insulin Syringe Safety-Gin] 1 mL 29 gauge x 1/2" syringe See Rx Instructions .Route Qty: 100 1RF Rx Instructions: use in case of pump failure Glucagon (HCl) Emergency Kit 1 mg recon soln 1 mg subcut Q20M PRN (Reason: hypoglycemia) Qty: 1 2RF Rx Instructions: until target blood sugar attained drospirenone-ethinyl estradiol [Loryna (28)] 3-0.02 mg tablet 1 tab PO DAILY (DME) Ketone Urine Test strip See Dose Instructions .ROUTE .MEDSUPPLY Qty: 25 Rx Instructions: Use as directed for elevated blood sugars Discharge Orders: Discharge Order (Routine); Ordered 11/03/21 Ordered By: Javid Taylor Admission Data Admit Date/Time: 11/02/21 11:55 Attending Provider: Javid Taylor Admit Provider: Javid Taylor Primary Care Provider: Mynor Felipe Other Providers: Javid Taylor
== END 2021-11-03 12:04 | disposition home or self-care (01) | DRG 552 ==
LOC: ED 17:24 → 3N 17:24